=== PATIENT | female | born 1935 | race Hispanic/Latino ===

== ENCOUNTER 2017-10-08 18:14 | Observation (INO) | payer OTHER, MEDICARE ==
[~2017-10-08] VITALS: Ht 154.9 cm; Wt 59.1 kg
[2017-10-08] MEDS: METOPROLOL TARTRATE 25 MG TAB PO SCH ×2 (11:50→21:00)
[~2017-10-08 18:14] MED LIST: ASPI-1181 PO; ATORVASTATIN PO; BENA40TA9 PO; FERR325T22 PO; HYDR25TA PO; INSU100V12 SQ; LANS1COM10 PO; LEVO125T11 PO; LINA72CA PO; METO25TA6 PO; PANT40TA25 PO; PREG100C PO; SUCR1TAB2 PO
[2017-10-08 18:56] LABS: BASOPHILS % (AUTO) 0.6 % (0.0-5.0); EOSINOPHILS % (AUTO) 1.4 % (0.0-8.0); HEMATOCRIT 35.4 % (36-48); LYMPHOCYTES % (AUTO) 18.1 % (21.0-51.0); MEAN CORPUSCULAR HGB CONC 35.8 g/dL (32.0-36.0); MEAN CORPUSCULAR VOLUME 89.4 fL (79-99); MONOCYTES % (AUTO) 7.7 % (3.0-13.0); NEUTROPHILS % (AUTO) 72.2 % (40.0-77.0); PLATELET COUNT (AUTO) 223 K/uL (130-400); RED BLOOD CELL COUNT(AUTO) 3.96 MIL/uL (4.00-5.50); RED CELL DISTRIBUTION WIDTH 14.1 % (11.0-15.5); WHITE BLOOD COUNT (AUTO) 8.5 K/uL (4.8-10.8)
[2017-10-08 19:11] LABS: POTASSIUM 4.4 mmol/L (3.5-5.1)
[2017-10-08 19:24] LABS: ALBUMIN 3.3 g/dL (3.5-5.0); BILIRUBIN,TOTAL 0.7 mg/dL (0.2-1.0); CREATINE KINASE MB 6.7 ng/mL (0.5-3.6); TOTAL PROTEIN, SERUM 7.4 g/dL (6.0-8.3)
[2017-10-08 19:28] LABS: INR 0.95 (0.85-1.15); PARTIAL THROMBOPLASTIN TIME 26.7 SEC (26.3-35.5)
[2017-10-08] MEDS ORDERED: NITROGLYCERIN 0.4 MG SL TAB SL PRN (23:45)
[2017-10-08] MEDS ORDERED: POTASSIUM CHLORIDE 10% ELIXIR 20 MEQ/15 ML UDCUP PO PRN (23:45)
[2017-10-08] MEDS ORDERED: CLONIDINE HCL 0.1 MG TABLET PO PRN (23:45)
[2017-10-08] MEDS ORDERED: LACTULOSE 20 GM/30 ML UDCUP PO PRN (23:45)
[2017-10-08] MEDS ORDERED: LIDOCAINE HCL-MPF 1% 2ML VIAL IJ PRN (23:45)
[2017-10-08] MEDS ORDERED: POTASSIUM CHLORIDE 20MEQ/100ML 100 ML IV PRN (23:45)
[2017-10-08] MEDS ORDERED: ACETAMINOPHEN 325 MG TAB PO PRN ×2 (23:45)
[2017-10-08] MEDS ORDERED: POTASSIUM CHLORIDE 20 MEQ ERTAB PO PRN (23:45)
[2017-10-08 23:52] VITALS: BP 152/73
[2017-10-09 01:48] LABS: CREATINE KINASE MB 4.9 ng/mL (0.5-3.6); TROPONIN I 0.06 ng/mL (0.00-0.06)
[2017-10-09 03:21] VITALS: BP 106/56
[2017-10-09 03:54] LABS: MEAN CORPUSCULAR HEMOGLOBIN 31.8 pg (27.0-33.0); MEAN CORPUSCULAR HGB CONC 35.6 g/dL (32.0-36.0); MEAN CORPUSCULAR VOLUME 89.4 fL (79-99); PLATELET COUNT (AUTO) 201 K/uL (130-400); RED BLOOD CELL COUNT(AUTO) 3.46 MIL/uL (4.00-5.50); WHITE BLOOD COUNT (AUTO) 6.7 K/uL (4.8-10.8)
[2017-10-09 04:16] LABS: CREATININE 1.1 mg/dL (0.5-1.5); POTASSIUM 3.6 mmol/L (3.5-5.1)
[2017-10-09 07:00] VITALS: BP 143/61
[2017-10-09] MEDS ORDERED: PNEUMOCOCCAL VACCINE POLYVALENT 0.5 ML/VIAL [PPV] IM SCH (07:00)
[2017-10-09 07:38] LABS: TROPONIN I 0.06 ng/mL (0.00-0.06)
[2017-10-09] MEDS: METOPROLOL TARTRATE 25 MG TAB PO SCH (08:41)
[2017-10-09] MEDS ORDERED: FAMOTIDINE 20MG TAB 20 MG TAB PO SCH (09:00)
[2017-10-09] MEDS ORDERED: ASPIRIN 325 MG TABLET PO SCH (09:00)
[2017-10-09] MEDS ORDERED: LINACLOTIDE 72 MCG PO PRN (09:45)
[2017-10-09 11:00] VITALS: BP 170/75
[2017-10-09] MEDS ORDERED: HYDROCHLOROTHIAZIDE 25 MG TABLET ONE (11:40)
[2017-10-09] MEDS ORDERED: HYDROCHLOROTHIAZIDE 25 MG TABLET PO SCH (11:45)
[2017-10-09 11:57] VITALS: BP 125/65
[2017-10-09] MEDS ORDERED: CLAR500T PO (13:22)
[2017-10-09] MEDS ORDERED: ATOR20TA65 PO (13:22)
[2017-10-09] MEDS ORDERED: OMEP20CA10 PO (13:22)
[2017-10-09] MEDS ORDERED: AMOX500C2 PO (13:22)
[2017-10-09] MEDS ORDERED: PREGABALIN 100 MG CAPSULE PO SCH (14:00)
[2017-10-09] MEDS ORDERED: SUCRALFATE 1 GM TABLET PO SCH (14:00)
[2017-10-09 15:30] VITALS: BP 139/73
[2017-10-09] MEDS ORDERED: ATORVASTATIN CALCIUM 20 MG TABLET PO SCH (21:00)
[2017-10-09] MEDS ORDERED: BENAZEPRIL HCL 10 MG TABLET PO SCH (21:00)
[2017-10-10] MEDS ORDERED: LEVOTHYROXINE 125 MCG TABLET PO SCH (06:30)
[2017-10-10] MEDS ORDERED: PANTOPRAZOLE SODIUM 40 MG TABLET.DR PO SCH (07:30)
[2017-10-10] MEDS ORDERED: HYDROCHLOROTHIAZIDE 25 MG TABLET PO SCH (09:00)
[2017-10-10] MEDS ORDERED: FERROUS SULFATE 325 MG TABLET.DR PO SCH (09:00)
== END 2017-10-09 18:20 | disposition home or self-care (01) ==
LOC: EDH 18:14 → EDHIP 22:05 → 2AH 23:13
PROVIDERS: ADMIT Internal Medicine; ATTEND Internal Medicine
DX: R07.89 Other chest pain (principal); E87.1 Hypo-osmolality and hyponatremia; E03.9 Hypothyroidism, unspecified; E78.5 Hyperlipidemia, unspecified; E11.9 Type 2 diabetes mellitus without complications; B96.81 Helicobacter pylori [H. pylori] as the cause of diseases classified elsewhere; Z95.2 Presence of prosthetic heart valve; Z95.0 Presence of cardiac pacemaker; Z83.3 Family history of diabetes mellitus; I10 Essential (primary) hypertension; K29.70 Gastritis, unspecified, without bleeding
CPT/HCPCS: 36415 ×2; 71045; 80048; 80053; 80061; 82550 ×3; 82553 ×3; 82948 ×3; 83874 ×3; 84443; 84484 ×3; 85025; 85027; 85610; 85730; 93005 ×3; 99291; G0378 ×20

== ENCOUNTER → 2021-06-23 | Outpatient (CLI) | payer OTHER, MEDICARE ==
[~2021-06-23] MED LIST changes: +AMOX500C2 PO; -ASPI-1181 PO; +ASPI-1443 PO; +ATOR20TA65 PO; -ATORVASTATIN PO; -BENA40TA9 PO; +BENA40TA92 PO; +CLAR-44 PO; -LANS1COM10 PO; +OMEP20CA12 PO; -PANT40TA25 PO; +PANT40TA54 PO; +REGADENOSON 0.4 MG/5 ML PF SYG IVP SCH
== END | disposition home or self-care (01) ==
LOC: SHCH 08:12
PROVIDERS: ATTEND Internal Medicine Cardiovascular Disease
DX: R07.9 Chest pain, unspecified (principal); Z95.0 Presence of cardiac pacemaker
CPT/HCPCS: 78452; 93017; 96374; A9500 ×2; J2785

== ENCOUNTER → 2021-09-17 | Outpatient (CLI) | payer OTHER, MEDICARE ==
[~2021-09-17] MED LIST changes: -REGADENOSON 0.4 MG/5 ML PF SYG IVP SCH
[2021-09-17 12:26] LABS: CREATININE 1.7 mg/dL (0.5-1.5); POTASSIUM 4.9 mmol/L (3.5-5.1)
== END ==
LOC: LAB 09:28
PROVIDERS: ATTEND Internal Medicine Cardiovascular Disease
DX: I10 Essential (primary) hypertension (principal); I50.32 Chronic diastolic (congestive) heart failure; Z95.2 Presence of prosthetic heart valve
CPT/HCPCS: 36415; 80048; 83880

== ENCOUNTER → 2021-10-30 | Outpatient (CLI) | payer OTHER, MEDICARE | END | disposition home or self-care (01) | LOC: RAH 09:31 | PROVIDERS: ATTEND Internal Medicine Gastroenterology | DX: K82.8 Other specified diseases of gallbladder (principal); R10.13 Epigastric pain | CPT/HCPCS: 76700 ==

== ENCOUNTER → 2022-03-25 | Outpatient (CLI) | payer OTHER, MEDICARE ==
[2022-03-25 13:15] LABS: ALBUMIN 2.9 g/dL (3.5-5.0); CREATININE 1.4 mg/dL (0.5-1.5); POTASSIUM 4.3 mmol/L (3.5-5.1); TOTAL PROTEIN, SERUM 7.1 g/dL (6.0-8.3)
== END | disposition home or self-care (01) ==
LOC: LAB 09:45
PROVIDERS: ATTEND Internal Medicine Cardiovascular Disease
DX: I50.32 Chronic diastolic (congestive) heart failure (principal); Z95.0 Presence of cardiac pacemaker
CPT/HCPCS: 36415; 80053; 80061; 83880

== ENCOUNTER → 2022-07-24 | Outpatient (CLI) | payer OTHER, MEDICARE ==
[2022-07-24 13:07] LABS: CREATININE 1.9 mg/dL (0.5-1.5); POTASSIUM 5.2 mmol/L (3.5-5.1)
== END | disposition home or self-care (01) ==
LOC: LAB 08:42
PROVIDERS: ATTEND Internal Medicine Cardiovascular Disease
DX: I50.22 Chronic systolic (congestive) heart failure (principal)
CPT/HCPCS: 36415; 80048; 83880

== ENCOUNTER → 2022-10-02 | Outpatient (CLI) | payer OTHER, MEDICARE ==
[2022-10-02 12:12] LABS: BASOPHILS % (AUTO) 0.6 % (0.0-5.0); EOSINOPHILS % (AUTO) 4.2 % (0.0-8.0); HEMATOCRIT 24.7 % (36-48); LYMPHOCYTES % (AUTO) 14.8 % (21.0-51.0); MEAN CORPUSCULAR HEMOGLOBIN 30.7 pg (27.0-33.0); MEAN CORPUSCULAR VOLUME 96.1 fL (79-99); MONOCYTES % (AUTO) 12.7 % (3.0-13.0); NEUTROPHILS % (AUTO) 67.5 % (40.0-77.0); PLATELET COUNT (AUTO) 163 K/uL (130-400); RED BLOOD CELL COUNT(AUTO) 2.57 MIL/uL (4.00-5.50); RED CELL DISTRIBUTION WIDTH 13.5 % (11.0-15.5); WHITE BLOOD COUNT (AUTO) 5.3 K/uL (4.8-10.8)
[2022-10-02 12:51] LABS: ALBUMIN 2.7 g/dL (3.5-5.0); CREATININE 1.5 mg/dL (0.5-1.5); POTASSIUM 4.2 mmol/L (3.5-5.1); TOTAL PROTEIN, SERUM 6.7 g/dL (6.0-8.3)
== END | disposition home or self-care (01) ==
LOC: LAB 08:19
PROVIDERS: ATTEND Internal Medicine Cardiovascular Disease
DX: I11.0 Hypertensive heart disease with heart failure (principal); I50.32 Chronic diastolic (congestive) heart failure
CPT/HCPCS: 36415; 80053; 80061; 85025

== ENCOUNTER 2023-06-10 07:20 | Day surgery (SDC) | payer OTHER, MEDICARE ==
[2023-06-08 16:13] VITALS: BP 177/81; PULSE 71; RESP 19
[2023-06-08 16:18] LABS: APPEARANCE,URINE CLEAR (CLEAR); BILIRUBIN,URINE NEGATIVE (NEGATIVE); COLOR,URINE LIGHT-YELLOW (YELLOW); GLUCOSE, URINE (UA) 300 mg/dL (NEGATIVE); KETONES,URINE NEGATIVE (NEGATIVE); LEUKOCYTE ESTERASE ,URINE NEGATIVE Leu/uL (NEGATIVE); NITRATE,URINE NEGATIVE (NEGATIVE); PH,URINE 6.5 (5.0-8.0); PROTEIN,URINE 200 mg/dL (NEGATIVE); UROBILINOGEN,URINE 0.2 mg/dL (0.2-1.0)
[2023-06-08 16:20] LABS: ADD UA MICROSCOPIC YES
[2023-06-08 16:21] LABS: BASOPHILS # (AUTO) 0.04 K/uL (0.00-0.20); BASOPHILS % (AUTO) 0.7 % (0.0-5.0); EOSINOPHILS # (AUTO) 0.16 K/uL (0.00-0.70); EOSINOPHILS % (AUTO) 2.8 % (0.0-8.0); HEMATOCRIT 32.7 % (36-48); IMMATURE GRANULOCYTE ABSOLUTE 0.02 K/uL (0-1); LYMPHOCYTES # (AUTO) 1.2 K/uL (1.0-4.8); LYMPHOCYTES % (AUTO) 21.3 % (21.0-51.0); MEAN CORPUSCULAR HEMOGLOBIN 33.4 pg (27.0-33.0); MEAN CORPUSCULAR HGB CONC 33.3 g/dL (32.0-36.0); MEAN CORPUSCULAR VOLUME 100.3 fL (79-99); MONOCYTES # (AUTO) 0.6 K/uL (0.1-1.0); NEUTROPHILS # (AUTO) 3.7 K/uL (1.8-7.7); NEUTROPHILS % (AUTO) 63.9 % (40.0-77.0); PLATELET COUNT (AUTO) 141 K/uL (130-400); RED BLOOD CELL COUNT(AUTO) 3.26 MIL/uL (4.00-5.50); WHITE BLOOD COUNT (AUTO) 5.7 K/uL (4.8-10.8)
[2023-06-08 16:31] LABS: INR <= 0.93 (0.85-1.15); PROTHROMBIN TIME 10.5 SEC (9.6-11.6)
[2023-06-08 16:33] LABS: PARTIAL THROMBOPLASTIN TIME 28.4 SEC (26.3-35.5)
[2023-06-08 16:37] LABS: CREATININE 2.1 mg/dL (0.5-1.5); POTASSIUM 4.7 mmol/L (3.5-5.1)
[2023-06-08 16:56] LABS: B-TYPE NATRIURETIC PEPTIDE 608 pg/mL (0-100)
[2023-06-08 16:58] LABS: MUCUS,URINE RARE LPF (None Seen)
[2023-06-10] VITALS (8 sets, daily range): BP systolic 148–159; BP diastolic 50–60; PULSE 60–67; RESP 11–17
[~2023-06-10] VITALS: Ht 149.9 cm; Wt 57.2 kg
[~2023-06-10 07:20] MED LIST changes: +ALEN35TA53 PO; +AMLO-257 PO; -AMOX500C2 PO; -ASPI-1443 PO; -ATOR20TA65 PO; +ATOR40TA71 PO; -BENA40TA92 PO; +CARV25TA PO; +CHOL100040 PO; -CLAR-44 PO; +DAPA10TA PO; +ESOM40CA54 PO; +FOLI1TAB85 PO; +FURO20TA4 PO; +GABA-529 PO; -HYDR25TA PO; +IRON1CAP30 PO; -LEVO125T11 PO; +LEVO137T2 PO; -LINA72CA PO; -METO25TA6 PO; +MONT-39 PO; -OMEP20CA12 PO; -PANT40TA54 PO; +POTA-202 PO; -PREG100C PO; -SUCR1TAB2 PO
[2023-06-10] MEDS ORDERED: 0.9%NACL 1000ML 1,000 ML IV ONE (07:38)
[2023-06-10] MEDS ORDERED: IOHEXOL 350 MG/ML 100ML INFUS..BTL IV ONE (10:26)
[2023-06-10] MEDS ORDERED: LIDOCAINE HCL 400MG/20ML VIAL ONE (10:26)
[2023-06-10] MEDS ORDERED: SODIUM BICARB 50MEQ 50ML VIAL 50 ML ONE (10:26)
[2023-06-10] MEDS ORDERED: HEPARIN 10,000 UNIT/10ML (1,000 UNIT/ML) VIAL ONE (10:27)
[2023-06-10] MEDS ORDERED: NITROGLYCERIN 50MG VIAL ONE (10:27)
[2023-06-10] MEDS ORDERED: FENTANYL CITRATE PF 50 MCG/1 ML 2ML VIAL ONE (10:36)
[2023-06-10] MEDS ORDERED: MIDAZOLAM HCL 1 MG/ML 2ML VIAL ONE (10:36)
== END 2023-06-10 13:34 | disposition home or self-care (01) ==
LOC: DAH 07:20
PROVIDERS: ATTEND Internal Medicine Cardiovascular Disease
DX: I11.0 Hypertensive heart disease with heart failure (principal); I50.42 Chronic combined systolic (congestive) and diastolic (congestive) heart failure; I27.20 Pulmonary hypertension, unspecified; G47.33 Obstructive sleep apnea (adult) (pediatric); E11.9 Type 2 diabetes mellitus without complications; E78.00 Pure hypercholesterolemia, unspecified; F32.A Depression, unspecified; M16.11 Unilateral primary osteoarthritis, right hip; Z83.3 Family history of diabetes mellitus; Z98.890 Other specified postprocedural states; Z95.2 Presence of prosthetic heart valve; Z79.01 Long term (current) use of anticoagulants; Z79.899 Other long term (current) drug therapy
CPT/HCPCS: 80048; 83880; 85025; 85610; 85730; 81001; 36415; 71045; 93005; 93451; 82948 ×2; C1894 ×2; C1769; J3490 ×2; J7030; J1644; A4215; A4222; A4663; A4216; A4606; A4223 ×3; A4221; J2250; J3010; Q9967

== ENCOUNTER → 2023-06-30 | Outpatient (CLI) | payer OTHER, MEDICARE ==
[2023-06-30 12:14] LABS: CREATININE 1.8 mg/dL (0.5-1.5)
== END | disposition home or self-care (01) ==
LOC: LAB 09:06
PROVIDERS: ATTEND Internal Medicine Cardiovascular Disease
DX: I50.32 Chronic diastolic (congestive) heart failure (principal); Z95.0 Presence of cardiac pacemaker
CPT/HCPCS: 36415; 80048; 83880

== ENCOUNTER → 2023-08-24 | Outpatient (CLI) | payer OTHER, MEDICARE | END | disposition home or self-care (01) | LOC: RAH 07:51 | PROVIDERS: ATTEND Internal Medicine Cardiovascular Disease | DX: I51.7 Cardiomegaly (principal); I50.32 Chronic diastolic (congestive) heart failure; Z95.0 Presence of cardiac pacemaker | CPT/HCPCS: 71046 ==